=== PATIENT | male | born 1975 | race Caucasian/White ===

== ENCOUNTER 2017-05-19 21:02 | Emergency (ER) | payer OTHER ==
[~2017-05-19 21:02] MED LIST: ALBUTEROL17 GM INH; CETIRIZINE HCL10 MG PO; CITALOPRAM HBR40 MG PO; CLEOCIN HCL300 M1 PO; CYANOCOBAL1000 MCG/M INJ; FERROUS FUMARAT89 MG PO; FLONASE 0.05% N16 GM; HYDROCHLOROTHIA25 MG PO; KEFLEX500 M1 PO; KEPPRA500 MG PO; LEVETIRACETAM750 MG PO; LOPID600 MG PO; MONTELUKAST SOD10 MG PO; NEURONTIN300 MG PO; PRAVASTATIN SOD20 MG PO; PREDNISONE PO; PROVENTIL0.83 MG/ML INH; SYMBICORT INH; TRILEPTAL PO; ZESTRIL40 MG PO; ZITHROMAX PO
== END 2017-05-19 22:03 | disposition home or self-care (01) ==
LOC: SED 21:02
DX: S51.012A Laceration without foreign body of left elbow, initial encounter (principal); S70.312A Abrasion, left thigh, initial encounter; F17.200 Nicotine dependence, unspecified, uncomplicated; Z79.899 Other long term (current) drug therapy; W18.39XA Other fall on same level, initial encounter; Y92.098 Other place in other non-institutional residence as the place of occurrence of the external cause
CPT/HCPCS: 12001; 99283

== ENCOUNTER 2017-05-29 12:05 | Emergency (ER) | payer OTHER | END 2017-05-29 13:01 | disposition home or self-care (01) | LOC: SED 12:05 | DX: Z48.02 Encounter for removal of sutures (principal); L03.114 Cellulitis of left upper limb; G40.909 Epilepsy, unspecified, not intractable, without status epilepticus; I10 Essential (primary) hypertension; J45.909 Unspecified asthma, uncomplicated; F17.210 Nicotine dependence, cigarettes, uncomplicated; Z79.899 Other long term (current) drug therapy | CPT/HCPCS: 99281 ==

== ENCOUNTER → 2017-06-26 | Outpatient (CLI) | payer OTHER ==
--- NOTE | ~2017-06-26 | EE ---
Unit #: [id number] #: [id number] Patient: LITA DAILY [id number] [address] [address] [id number] MR#: [id number] NAME: LITA DAILY : 1975 SEX: M STUDY DATE/TIME: 06/26/2017 UNIT: CEEG ROOM: STUDY DESCRIPTION: EEG Attending Physician: Clint Rider II., M.D. Referring Physician: Clint Rider II., M.D. Primary Care Physician: Sima Sharma M.D. NEURODIAGNOSTICS REPORT EXAM EEG REASON FOR STUDY Seizures. TECH [facility] [employer] [facility] TECHNICAL INFORMATION This is a routine EEG performed using the standard International 10-20 System of electrode placement. Photic stimulation was performed. Hyperventilation was also performed. REPORT Throughout the entire study, the best background rhythm seen is approximately 9 Hz. This rhythm is seen in both posterior head regions symmetrically and does attenuate to eye opening and closure. Hyperventilation was performed which failed to reproduce any abnormal buildup. Photic stimulation was also performed which did not elicit any epileptiform abnormalities. There was not a significant photic driving response seen during the study. Throughout the entire study, there were no electrographic seizures recorded nor were there any independent epileptiform abnormalities seen. No sleep was recorded during the EEG. INTERPRETATION This is a normal awake EEG. A normal EEG does not rule out the possibility of seizure disorder. Clinical correlation is advised. Dictated by... Clint Rider II., M.D. GWS/cinthya TD: 07/01/2017 13:01 JOB #: [id number] Unit #: [id number] #: [id number] Patient: LITA DAILY NEURODIAGNOSTICS REPORT Page 1 of 1 X NEURODIAGNOSTICS REPORT
== END | disposition home or self-care (01) ==
LOC: CEEG 09:42
DX: R56.9 Unspecified convulsions (principal)
CPT/HCPCS: 95816